=== PATIENT | female | born 1940 | race Hispanic/Latino ===

== ENCOUNTER 2018-07-01 10:13 | Emergency (ER) | payer SELFPAY ==
[2018-07-01 11:44] LABS: #Basophils 0.1 thou/uL (0.0-0.2); #Eosinphils 0.2 thou/uL (0.0-0.7); #Lymphocytes 2.4 thou/uL (1.20-3.40); #Monocytes 0.5 thou/uL (0.11-0.59); #Neutrophils 3.6 thou/uL (1.40-6.50); %Eosinophils 2.8 % (0.0-10.0); %Lymphocytes 35.5 % (21.0-51.0); %Monocytes 6.9 % (0.0-10.0); %Neutrophils 53.9 % (42.0-75.0); Hemoglobin 13.6 g/dL (12.0-16.0); Mean Corpuscular HGB CONC 33.2 g/dL (32.0-36.0); Mean Corpuscular Hemoglobin 31.4 pg (27.0-31.0); Mean Corpuscular Volume 94.4 fL (78.0-98.0); Mean Platelet Volume 8.4 fL (7.4-10.4); Platelet Count 216 thou/uL (130-400); RBC Distribution Width 11.4 % (11.5-14.5); Red Blood Cell (RBC) Count 4.34 mill/uL (4.20-5.40); White Blood Cell (WBC) Count 6.7 thou/uL (4.8-10.8)
[2018-07-01 12:08] LABS: ALT (SGPT) 23 U/L (8-55); AST (SGOT) 19 U/L (5-34); Albumin 3.8 g/dL (3.4-4.8); Alkaline Phosphatase 102 U/L (40-150); Anion Gap 14 mmol/L (10-20); BUN (Urea Nitrogen) 22 mg/dL (9.8-20.1); Bilirubin, Total 0.4 mg/dL (0.2-1.2); Calc. Creatinine Clearance 0 mL/min (70-130); Calcium 9.3 mg/dL (7.8-10.44); Carbon Dioxide 27 mmol/L (23-31); Chloride 98 mmol/L (98-107); Estimated GFR-MDRD 57; Globulin 3.4 g/dL (2.4-3.5); Glucose 499 mg/dL (83-110); Potassium 4.2 mmol/L (3.5-5.1); Protein, Total 7.2 g/dL (6.0-8.3); Sodium 135 mmol/L (136-145)
--- NOTE | 2018-07-01 12:17 | RAD ---
3 VIEWS RIGHT FOOT: Date: 07/01/18 COMPARISON: None. HISTORY: Diabetic foot ulcers. FINDINGS: Bones are demineralized, limiting detailed assessment. There is vascular calcification within the mid foot and forefoot. There is enthesophyte formation at the insertion of the Achilles tendon and origin of the plantar aponeurosis. There is dorsal degenerative change involving the midfoot. No displaced acute fracture or dislocation. IMPRESSION: No acute osseous abnormality. If there is clinical concern for osteomyelitis, MRI suggested. POS: [facility]
--- NOTE | 2018-07-01 12:23 | RAD ---
3 VIEWS LEFT FOOT: Date: 07/01/18 HISTORY: Diabetic foot ulcers, bilateral foot pain and discoloration, multiple sores between toes. FINDINGS: There is diffuse osteopenia. Toes are held in mild flexion, but no fracture or dislocation is seen. T here is an erosion seen at the plantar aspect of the great toe, but this is corticated and this does not represent an acute finding, although chronic osteomyelitis in this region cannot be entirely excl uded, although is thought less likely. There is evidence of what appears to be soft tissue defect in the plantar aspect of the great toe. Degenerative changes seen involving the midfoot with posterior p lantar calcaneal enthesophytes identified. Vascular calcifications seen about the foot. IMPRESSION: 1. No acute osseous abnormality left foot. 2. Diffuse osteopenia and osteoarthritis. 3. Probable more chronic appearing erosion involving the plantar aspect of the distal phalanx left g reat toe with overlying soft tissue wound. POS: [facility]
== END 2018-07-01 13:07 | disposition home or self-care (01) ==
LOC: ERS 10:13
DX: E11.65 Type 2 diabetes mellitus with hyperglycemia (principal); E11.621 Type 2 diabetes mellitus with foot ulcer; I10 Essential (primary) hypertension; Z79.4 Long term (current) use of insulin; Z79.899 Other long term (current) drug therapy
CPT/HCPCS: 36415; 80053; 85025

== ENCOUNTER 2018-07-13 09:10 | Outpatient (CLI) | payer SELFPAY ==
[2018-07-13] MEDS ORDERED: Sodium Chloride 0.9% 15 ML NEB ONE (13:56)
--- NOTE | 2018-07-13 14:51 | HP ---
HISTORY OF PRESENT ILLNESS: Ms. Feli Bardales is a 78-year-old accompanied by her obdnjxsz-lh-bzc and iqeeec-dq-gqn, who presents to the [facility] for evaluation of multiple ulcerations of the right and left feet between the toes of the right and left feet. The wounds of the right foot have been present for approximately 1 year. The wounds of the left foot have been present for approximately five months according to the patient's vrzsuh-fk-npo. The patient was referred to the Wound Center after being seen in the emergency department at [facility]. The patient has been receiving dressing changes of Vaseline for the wounds in between the toes of her right and left feet. Cotton is applied over the Vaseline. PAST MEDICAL HISTORY: 1. Diabetes mellitus. 2. Hypertension. 3. Peripheral vascular disease. PAST SURGICAL HISTORY: Negative. MEDICATIONS: 1. Humulin R. 2. Captopril. 3. Vitamin B. ALLERGIES: NO KNOWN DIAGNOSED ALLERGIES. SOCIAL HISTORY: Social history is negative for tobacco or EtOH use. FAMILY HISTORY: Family history is significant for diabetes mellitus. The patient apparently has five siblings, who were diagnosed with diabetes mellitus. The patient's oldest son also was diagnosed with diabetes mellitus. Family history is negative for coronary artery disease. PHYSICAL EXAMINATION: VITAL SIGNS: Temperature 98.2, pulse 74, respirations 18, blood pressure 181/77. Accu-Chek 379. GENERAL: A 78-year-old female sitting on chair in examination room, in no acute distress. HEENT: Normocephalic and atraumatic. NECK: No nuchal rigidity. CHEST: Clear to auscultation. CV: Regular rate and rhythm. ABDOMEN: Soft. EXTREMITIES: An ulceration of the left medial fourth toe is present, which measures approximately 0.7 x 0.4 cm. An ulceration of the left lateral fourth toe is present, which measures approximately 0.5 x 0.7 cm. An ulceration of the right medial second toe is present, which measures approximately 0.2 x 0.3 cm. An ulceration of the right 4th lateral toe was present, which measures approximately 0.3 x 0.3 cm. Fascia is visible within the wound margins of one of the ulcerations. No purulent drainage is associated with any of the wounds. No erythema of the skin surrounding any of the wounds is present. No maceration of the skin of the periwound of any of the wounds is noted. A dorsalis pedis pulse is palpable on the left. A dorsalis pedis pulse or posterior tibial pulse is not palpable on the right, but both pulses are audible by Doppler. No significant edema of the right or left foot is present on exam today. NEUROLOGIC: Grossly nonfocal. ASSESSMENT AND PLAN: 1. Multiple ulcerations of right and left feet in between the toes of the right and left feet as described above. Dressing changes of Medihoney and gauze will be initiated today. These dressing changes are to be performed on a daily basis after cleansing and irrigation. The patient's safqiwkx-eb-giv has been instructed to discontinue cleansing of the wounds with vinegar and water instead. The patient's daughter in-law has been instructed that she may continue to cleanse the wounds with a wound cleanser or cleansing agent designed for wounds. The patient has an appointment at [facility] and I have recommended to the patient's nwvwpc-eg-zfj that arrangements will be made for evaluation for right and left lower extremity arterial insufficiency after her appointment at [facility]. The patient's mezsos-cp-kge understands and is in agreement with the preceding treatment and plan. I will see Ms. Darrius Bardales after evaluation for arterial insufficiency of the right and left lower extremities is complete along with any necessary treatment. The patient is to continue Augmentin as prescribed in the emergency department. 2. Diabetes mellitus. The patient's Accu-Chek in clinic today is 379. The patient's dxtlta-su-dxf and jsjkxqot-ad-udi have been told that for optimal wound healing, the patient's blood glucoses should remain below 150. 3. Hypertension. 4. Peripheral vascular disease. Job ID: [id number]
== END 2018-07-13 09:11 | disposition home or self-care (01) ==
LOC: WCC 09:10
PROVIDERS: ATTEND Family Medicine
DX: E11.621 Type 2 diabetes mellitus with foot ulcer (principal); L97.529 Non-pressure chronic ulcer of other part of left foot with unspecified severity; L97.519 Non-pressure chronic ulcer of other part of right foot with unspecified severity; I10 Essential (primary) hypertension; I73.9 Peripheral vascular disease, unspecified
CPT/HCPCS: 36416; 97602; 99203; A4218; G0463

== ENCOUNTER 2018-07-30 14:47 | Outpatient (CLI) | payer SELFPAY ==
[2018-07-30] MEDS ORDERED: Sodium Chloride 0.9% 15 ML NEB ONE (15:00)
--- NOTE | 2018-07-30 18:11 | PRG ---
DATE OF SERVICE: 07/30/2018 SUBJECTIVE: Ms. Feli Bardales is a 78-year-old accompanied by her mkbgnegx-or-aaq, who presents to the Wound Center for evaluation of multiple ulcerations of the right and left feet between the toes of the right and left feet. The wounds of the right foot have apparently been present for approximately 1 year. The wounds of the left foot have been present for approximately five months according to the patient's ayimwu-ff-whb, who accompanied Ms. Darrius Bardales to her initial presentation to the Wound Center. The patient was referred to the Wound Center after being seen in the emergency department at [facility]. After being seen in the Wound Center, the patient was placed on dressing changes of Medihoney. These dressing changes have been performed twice a day. Ms. Darrius Bardales has had increasing pain associated with the ulcerations of her right and left feet for which she was placed on Ultram at [facility]. PHYSICAL EXAMINATION: VITAL SIGNS: Temperature 98.7, pulse 80, respirations 20, blood pressure 153/66. Accu-Chek 188. EXTREMITIES: The ulceration of the right medial second toe has healed. An ulceration of the left medial fourth toe is present, which measures approximately 0.5 x 0.3 cm. The dimensions of the wound at the time of the patient's last visit were approximately 0.7 x 0.4 cm. An ulceration of the left lateral fourth toe is present, which measures approximately 0.7 x 0.6 cm. The dimensions of this wound at the time of the patient's last visit were approximately 0.5 x 0.7 cm. An ulceration of the right lateral fourth toe is present, which measures approximately 0.5 x 0.4 cm. The dimensions of this wound at the time of the patient's last visit were approximately 0.3 x 0.3 cm. No purulent drainage is associated with any of the wounds. No erythema of the skin surrounding any of the wounds is present. No maceration of the skin of the periwound of any of the wounds is noted. Edema of the dorsum of the left foot is present on today's exam. ASSESSMENT AND PLAN: 1. Multiple ulcerations of right and left feet in between the toes of the right and left feet as described above. Dressing changes of Medihoney and gauze will be continued. The patient's wvqzckta-rm-mew has been told that these dressing changes may be performed on a daily basis after cleansing and irrigation as opposed to b.i.d. Arterial Doppler of the lower extremities obtained on 07/16/2018 revealed severe atherosclerotic disease of the foreleg vasculature. The treatment plan has been discussed with the patient's provider at [facility]. The patient and her family have been told through the aid of a marketing/sales person that Ms. Darrius Bardales will need further workup and treatment of the arterial insufficiency of her right and left lower extremities in order to promote the healing of her wounds in a timely manner. The patient and her family have been advised to report to the emergency department in order to facilitate further evaluation and treatment. The patient and her family understand and are in agreement with the preceding treatment plan. 2. Diabetes mellitus. The patient's Accu-Chek in clinic today is 188. The patient's qtyzftxu-si-zor has been reminded that for optimal wound healing, the patient's blood glucoses should remain below 150. 3. Hypertension. 4. Peripheral vascular disease. Job ID: [id number]
== END 2018-07-30 14:48 | disposition home or self-care (01) ==
LOC: WCC 14:47
PROVIDERS: ATTEND Family Medicine
DX: E11.621 Type 2 diabetes mellitus with foot ulcer (principal); L97.529 Non-pressure chronic ulcer of other part of left foot with unspecified severity; L97.519 Non-pressure chronic ulcer of other part of right foot with unspecified severity; I73.9 Peripheral vascular disease, unspecified; I10 Essential (primary) hypertension
CPT/HCPCS: A4218

== ENCOUNTER 2018-08-03 09:11 | Emergency (ER) | payer OTHER, SELFPAY ==
[2018-08-03] MEDS ORDERED: Morphine 10 MG/ML VIAL ONE (10:28)
[2018-08-03] MEDS ORDERED: Gabapentin 100 MG CAP PO SCH (11:00)
--- NOTE | 2018-08-03 11:04 | RAD ---
LEFT FOOT 3 VIEWS: DATE: 08/03/2018. COMPARISON: None. HISTORY: Lower extremity discoloration, bilateral foot pain. FINDINGS: The bones appear demineralized. There is atherosclerotic calcification of the mid foot and forefoot. There is enthesophyte formation at the insertion of the Achilles tendon and origin of the plantar a poneurosis. There is mid foot degenerative change with dorsal mid foot osteophyte formation. No displaced fracture or evidence of dislocation is seen. IMPRESSION: Osteopenia with degenerative change and atherosclerotic disease as detailed above. POS: [facility]
--- NOTE | 2018-08-03 11:06 | RAD ---
RIGHT FOOT 3 VIEWS: HISTORY: Right foot pain with some discoloration. COMPARISON: 07/01/2018. FINDINGS: There is fairly severe heterogeneous bone demineralization. Prominent vascular calcifications. Athr osis and degenerative changes. IMPRESSION: Severe bone demineralization with prominent vascular calcifications with arthrosis and degenerative c hanges showing little change from prior study, 07/01/2018. If there is concern for osteomyelitis, a no nemergent followup MRI study should be considered. POS: [facility]
== END 2018-08-03 12:02 | disposition home or self-care (01) ==
LOC: ERS 09:11
DX: I73.9 Peripheral vascular disease, unspecified (principal); M79.672 Pain in left foot; M79.671 Pain in right foot; E11.40 Type 2 diabetes mellitus with diabetic neuropathy, unspecified; I10 Essential (primary) hypertension; Z79.4 Long term (current) use of insulin; Z79.899 Other long term (current) drug therapy
CPT/HCPCS: 96372; J2270

== ENCOUNTER 2020-06-21 09:56 | Outpatient (CLI) | payer OTHER ==
--- NOTE | 2020-06-21 11:17 | CT ---
CT ANGIOGRAM THORAX WITH CONTRAST: DATE: 06/21/2020 HISTORY: 80-year-old female with ICD-10: "I 73.9, peripheral arterial disease" No other clinical information available. Dr. Horvath is not available at this time. Nurse Romy was unable to provide any additional relevant information from the patient's chart, by tayla funes. TECHNIQUE: IV injection of iodinated contrast. Scan acquisition timing attempted to coincide with iodinated contrast bolus reaching maximal density in the thoracic aorta. 3-D MIP reconstructions. FINDINGS: There is atherosclerotic calcification throughout the entire thoracic aorta. No thoracic aortic aneurysm, dissection, or rupture. No thrombus in the pulmonic trunk or left and right main pulmonary arteries. Trachea and major bronchi are patent and clear. No cardiomegaly, pericardial effusion, pleural effusion, or pneumothorax. Images are somewhat degraded by patient breathing motion. No consolidation, pulmonary edema, bullous disease, or suspicious lung mass. No mediastinal or hilar lymphadenopathy. Thoracic vertebral body heights are maintained. IMPRESSION: Atherosclerosis of thoracic aorta.
== END 2020-06-21 09:57 | disposition home or self-care (01) ==
LOC: BICCT 09:56
PROVIDERS: ATTEND Internal Medicine Cardiovascular Disease
DX: I73.9 Peripheral vascular disease, unspecified (principal); I70.0 Atherosclerosis of aorta
CPT/HCPCS: 71275; 82565

== ENCOUNTER 2020-09-20 10:52 | Outpatient (CLI) | payer SELFPAY ==
[2020-09-20 12:59] LABS: #Basophils 0.1 10x3/uL (0.0-0.2); #Eosinphils 0.1 10x3/uL (0.0-0.5); #Neutrophils 9.6 10x3/uL (1.5-8.4); %Basophils 0.5 % (0.0-2.0); %Eosinophils 0.4 % (0.0-6.0); %Monocytes 7.9 % (0.0-10.0); %Neutrophils 74.8 % (40.0-75.0); Hemoglobin 11.7 g/dL (12.0-15.5); Mean Corpuscular HGB CONC 32.6 g/dL (32.0-36.0); Mean Corpuscular Hemoglobin 30.5 pg (27.0-33.0); Mean Corpuscular Volume 93.7 fl (81.6-98.3); Mean Platelet Volume 11.1 fl (7.4-10.4); Platelet Count 237 10x3/uL (150-450); RBC Distribution Width 13.6 % (11.5-14.5); Red Blood Cell (RBC) Count 3.83 10x6/uL (3.90-5.03); White Blood Cell (WBC) Count 12.8 10x3/uL (3.5-10.5)
[2020-09-20 13:04] LABS: ALT (SGPT) 60 U/L (8-55); AST (SGOT) 43 U/L (5-34); Albumin 3.8 g/dL (3.4-4.8); Alkaline Phosphatase 119 U/L (40-110); Anion Gap 15 mmol/L (10-20); BUN (Urea Nitrogen) 20 mg/dL (9.8-20.1); Bilirubin, Total 0.8 mg/dL (0.2-1.2); Calc. Creatinine Clearance 0 mL/min (70-130); Calcium 9.2 mg/dL (7.8-10.44); Carbon Dioxide 27 mmol/L (23-31); Chloride 100 mmol/L (98-107); Globulin 2.9 g/dL (2.4-3.5); Glucose 219 mg/dL (83-110); Protein, Total 6.7 g/dL (5.8-8.1); Sodium 137 mmol/L (136-145)
== END 2020-09-20 10:53 | disposition home or self-care (01) ==
LOC: LABBT 10:52
PROVIDERS: ATTEND Internal Medicine Cardiovascular Disease
DX: Z01.818 Encounter for other preprocedural examination (principal); R94.39 Abnormal result of other cardiovascular function study
CPT/HCPCS: 71045; 80053; 85025; 93005; 93010

== ENCOUNTER 2020-09-25 05:59 | Day surgery (SDC) | payer OTHER ==
[2020-09-22 09:48] VITALS: BMI 24.5
[2020-09-25] MEDS ORDERED: Lidocaine 1% (PF) 30 ML VIAL ONE (06:43)
[2020-09-25] MEDS ORDERED: Heparin 10,000 UNITS/ 10 ML VIAL ONE (06:45)
[2020-09-25] MEDS ORDERED: Midazolam HCl 2 mg/2 ml Vial ONE (07:20)
[2020-09-25] MEDS ORDERED: Fentanyl 100 MCG/2 ML VIAL ONE (07:20)
[2020-09-25] MEDS ORDERED: Bivalirudin 250 MG VIAL ONE (07:39)
[2020-09-25] MEDS ORDERED: Nitroglycerin 100MG/250ML BOT 250 ML ONE (07:40)
[2020-09-25] MEDS ORDERED: Clopidogrel Bisulfate 300 MG TAB ONE ×2 (07:49→07:50)
[2020-09-25] MEDS ORDERED: Iopamidol 370 76% 50 ML VIAL FS ONE (09:16)
[2020-09-25] MEDS ORDERED: Iopamidol 370 76% 100 ML VIAL ONE (09:16)
[2020-09-25] MEDS ORDERED: Acetaminophen 500 MG TAB ONE (10:04)
== END 2020-09-25 17:50 | disposition home or self-care (01) ==
LOC: CCL 05:59
PROVIDERS: ATTEND Internal Medicine Cardiovascular Disease
PROC: B2111ZZ Fluoroscopy of Multiple Coronary Arteries using Low Osmolar Contrast (ICD-10-PCS; principal; 2020-09-25)
PROC: 4A023N8 Measurement of Cardiac Sampling and Pressure, Bilateral, Percutaneous Approach (ICD-10-PCS; principal; 2020-09-25)
DX: I25.10 Atherosclerotic heart disease of native coronary artery without angina pectoris (principal); I10 Essential (primary) hypertension; E78.00 Pure hypercholesterolemia, unspecified; E11.51 Type 2 diabetes mellitus with diabetic peripheral angiopathy without gangrene; E11.41 Type 2 diabetes mellitus with diabetic mononeuropathy; Z79.4 Long term (current) use of insulin; Z79.82 Long term (current) use of aspirin; Z79.899 Other long term (current) drug therapy; Z89.512 Acquired absence of left leg below knee
CPT/HCPCS: 85347; 93458; 99152; 99153; J0583; J1644; J2001; J2250; J3010; Q9967